=== PATIENT | female | born 1985 | race Caucasian/White ===

== ENCOUNTER 2019-05-29 10:56 | Emergency (ER) | payer OTHER ==
[~2019-05-29] VITALS: Ht 157.5 cm; Wt 52.2 kg
[2019-05-29] MEDS ORDERED: MOBIC7.5 MG PO (11:53)
[2019-05-29 12:28] VITALS: BP 125/81
== END 2019-05-29 12:29 | disposition home or self-care (01) ==
LOC: ER 10:56
DX: S93.492A Sprain of other ligament of left ankle, initial encounter (principal); X50.1XXA Overexertion from prolonged static or awkward postures, initial encounter; Y93.89 Activity, other specified; Y92.89 Other specified places as the place of occurrence of the external cause; Y99.0 Civilian activity done for income or pay